=== PATIENT | female | born 1985 | race African-American/Black ===

== ENCOUNTER 2017-08-19 01:24 | Emergency (ER) | payer MEDICAID ==
[~2017-08-19] VITALS: Ht 165.1 cm; Wt 56.7 kg
--- NOTE | 2017-08-19 01:37 | NUR ---
PT TO ER BED 7. BIBRA FROM STREET C/O "BODY PAIN SINCE MIDNIGHT". PT PLACED ON BOX OFFICE CLERK. VSS/RESP EVEN UNLABORED/NAD NOTED/SKIN WARM AND DRY/AFEBRILE/DENIES N-V-D/AOX4. AWAITING MD CHRISTOPHER.
--- NOTE | 2017-08-19 02:20 | NUR ---
LAB AT BEDSIDE TO DRAW.
--- NOTE | 2017-08-19 02:20 | NUR ---
PT REFUSING TO GIVE A URINE, ALOS REFUSES F/C. MADE AWARE, NO NEW ORDERS RECEIVED AT THIS TIME.
[2017-08-19 02:34] LABS: BASOPHILS % (AUTO) 0.4 % (0.0-2.0); HEMATOCRIT 38 % (33-45); HEMOGLOBIN 12.4 g/dL (11.5-14.8); LYMPHOCYTES # (AUTO) 2.3 /CMM (0.8-4.8); LYMPHOCYTES % (AUTO) 29.5 % (20.0-44.0); MEAN CORPUSCULAR HEMOGLOBIN 26 PG (26.0-33.0); MEAN CORPUSCULAR HGB CONC 32 g/dl (31.0-36.0); MEAN CORPUSCULAR VOLUME 81 fL (82-100); MONOCYTES # (AUTO) 0.5 /CMM (0.1-1.30); MONOCYTES % (AUTO) 5.9 % (2.0-12.0); NEUTROPHILS # (AUTO) 4.9 /CMM (1.8-8.9); NEUTROPHILS % (AUTO) 64.2 % (43.0-81.0); PLATELET COUNT (AUTO) 191 /CMM (150-450); RDW COEFFICIENT OF VARIATION 14.6 (11.5-15.0); RED BLOOD CELL COUNT(AUTO) 4.72 MIL/uL (4.0-5.2); WHITE BLOOD COUNT (AUTO) 7.7 K/uL (4.3-11.0)
[2017-08-19 02:48] LABS: ALANINE AMINOTRANSFERASE 30 U/L (12-78); ALBUMIN 3.9 g/dL (3.4-5.0); ALCOHOL, BLOOD < 3 mg/dL (0-0); ALKALINE PHOSPHATASE 147 U/L (46-116); ASPARTATE AMINOTRANSFERASE 13 U/L (15-37); BILIRUBIN,DIRECT 0.1 mg/dL (0.0-0.2); BILIRUBIN,TOTAL 0.5 mg/dL (0.2-1.0); CALCIUM, SERUM 9.4 mg/dL (8.5-10.1); CARBON DIOXIDE 22 mmol/L (21-32); CHLORIDE 95 mmol/L (98-107); CREATININE 0.8 mg/dL (0.6-1.3); POTASSIUM 4.3 mmol/L (3.5-5.1); SODIUM SERUM 132 mmol/L (136-145); TOTAL PROTEIN, SERUM 7.6 g/dL (6.4-8.2); UREA NITROGEN, BLOOD 12 mg/dL (7-18)
[2017-08-19 02:52] LABS: ACETAMINOPHEN 0 ug/ml (10-30); GLUCOSE 544 mg/dL (74-106); THYROID STIMULATING HORMONE 1.678 uIU/mL (0.358-3.74)
[2017-08-19] MEDS ORDERED: INSULIN REGULAR, HUMAN 100 UNIT/ML 10 ML VIAL IV ONE (03:00)
[2017-08-19] MEDS ORDERED: IV NS 0.9% 1,000 ML BAG IV ONE (03:00)
[2017-08-19] MEDS ORDERED: POTASSIUM CHLORIDE 10 MEQ/50 ML PREMIXED IVPB FOR PERIPHERAL LINE IV ONE (03:00)
[2017-08-19] MEDS ORDERED: POTASSIUM CL. PREMIX PERIPHER. 100 ML ONE (03:07)
[2017-08-19] MEDS ORDERED: INSULIN REGULAR, HUMAN 100 UNIT/ML 10 ML VIAL ONE (03:07)
--- NOTE | 2017-08-19 03:15 | NUR ---
20G IV TO L HAND X 1 ATTEMPT USING ASEPTIC TECH. IV FLUSHES EASILY WITH NS, NO S/S INFILTRATION NOTED AT THIS TIME.
--- NOTE | 2017-08-19 04:33 | NUR ---
URINE SPECIMEN OBTAINED AND SENT TO THE LAB.
[2017-08-19 04:44] LABS: APPEARANCE,URINE CLEAR (CLEAR); BILIRUBIN,URINE NEGATIVE (NEGATIVE); BLOOD, URINE NEGATIVE Ery/uL (NEGATIVE); KETONES,URINE 3+ (NEGATIVE); LEUKOCYTE ESTERASE ,URINE NEGATIVE (NEGATIVE); NITRITE, URINE NEGATIVE (NEGATIVE); PH,URINE 5.5 (5.0-8.0); PROTEIN,URINE NEGATIVE (NEGATIVE); UGLUCOSE 3+ mg/dL (NEGATIVE); UROBILINOGEN,URINE 0.2 EU/dL (0.2)
[2017-08-19 05:08] LABS: BACTERIA,URINE None seen /HPF (None Seen); RBC,URINE NONE SEEN /HPF (0-2); SQUAMOUS EPITHELIAL CELL,UR Few /HPF (None Seen); WBC,URINE 0-2 /HPF (0-3)
[2017-08-19 05:09] LABS: COLOR,URINE Light yellow (YELLOW)
--- NOTE | 2017-08-19 06:54 | NUR ---
IV removed. Catheter intact and site benign. Pressure and 4x4 applied to site. No bleeding noted.
--- NOTE | 2017-08-19 07:06 | NUR ---
PT AWAKE AND ALERT. AWAITNG PEDIATRICS PHYSICIAN FOR PSYC EVAL. VSS. RN TO CONTINUE MONITORING PROVIDING SAFETY/COMFORT MEASURES.
--- NOTE | 2017-08-19 07:14 | NUR ---
ENDORSED TO NEELIMA GREEN FOR CAROL.
--- NOTE | 2017-08-19 08:26 | NUR ---
PY EASILY AROUSED SLEEPY CONT TO MOITOR
--- NOTE | 2017-08-19 10:16 | NUR ---
PT SPOKE WITH CLEMENT ENG PT. VERBALIZED UNDERSTANDING OF AFTERCARE INSTRUCTIONS.Patient discharged to home in stable condition. Written and verbal after care instructions given. Patient verbalizes understanding of instruction.
[2017-08-19 10:17] VITALS: BP 126/68
== END 2017-08-19 10:19 | disposition home or self-care (01) ==
LOC: ER 01:26
DX: E11.65 Type 2 diabetes mellitus with hyperglycemia (principal); R52 Pain, unspecified; F32.9 Major depressive disorder, single episode, unspecified; E86.0 Dehydration; Z59.0 Homelessness
CPT/HCPCS: 36415; 80048; 80076; 80305; 80329; 81001; 82962; 84443; 84703; 85025; 96361; 96374; 99285; A4606; G0480 ×2; J1815; J3480; J7030; Z7610; 81000-TC

== ENCOUNTER 2017-10-02 04:14 | Emergency (ER) | payer MEDICAID ==
[~2017-10-02] VITALS: Ht 172.7 cm; Wt 59.0 kg
[2017-10-02 04:23] VITALS: BP 124/55
--- NOTE | 2017-10-02 04:25 | NUR ---
PATIENT BIBRA. PATIENT WITH C/O 10/10 PAIN ALL OVER BODY, BURNING AND SHARP IN NATURE, DENIES TAKING ANY MEDICATION FOR PAIN.
--- NOTE | 2017-10-02 04:30 | NUR ---
PATIENT REFUSING LABS TO BE DRAWN, REFUSING IV INSERTION. MADE AWARE
[2017-10-02] MEDS ORDERED: INSULIN REGULAR, HUMAN 100 UNIT/ML 10 ML VIAL ONE (04:50)
[2017-10-02 04:59] LABS: BASOPHILS % (AUTO) 0.7 % (0.0-2.0); EOSINOPHILS % (AUTO) 0.3 % (0.0-6.0); HEMATOCRIT 38 % (33-45); HEMOGLOBIN 11.8 g/dL (11.5-14.8); LYMPHOCYTES # (AUTO) 1.2 /CMM (0.8-4.8); LYMPHOCYTES % (AUTO) 25.6 % (20.0-44.0); MEAN CORPUSCULAR HEMOGLOBIN 26 PG (26.0-33.0); MEAN CORPUSCULAR HGB CONC 31 g/dl (31.0-36.0); MEAN CORPUSCULAR VOLUME 82 fL (82-100); MONOCYTES # (AUTO) 0.3 /CMM (0.1-1.30); NEUTROPHILS # (AUTO) 3.1 /CMM (1.8-8.9); NEUTROPHILS % (AUTO) 67.4 % (43.0-81.0); PLATELET COUNT (AUTO) 258 /CMM (150-450); RED BLOOD CELL COUNT(AUTO) 4.59 MIL/uL (4.0-5.2); WHITE BLOOD COUNT (AUTO) 4.6 K/uL (4.3-11.0)
[2017-10-02] MEDS ORDERED: INSULIN REGULAR, HUMAN 100 UNIT/ML 10 ML VIAL SQ ONE (05:00)
--- NOTE | 2017-10-02 05:15 | NUR ---
BLOOD SUGAR READING "HI". MD AWARE. PERIPHERAL STICK BLOOD GLUCOSE >600. PATIENT MEDICATED ORDERED
[2017-10-02 05:16] LABS: ALBUMIN 3.7 g/dL (3.4-5.0); BILIRUBIN,TOTAL 0.4 mg/dL (0.2-1.0); CALCIUM, SERUM 9.1 mg/dL (8.5-10.1); CREATININE 0.9 mg/dL (0.6-1.3); POTASSIUM 4.1 mmol/L (3.5-5.1); TOTAL PROTEIN, SERUM 7.4 g/dL (6.4-8.2)
== END 2017-10-02 05:55 | disposition home or self-care (01) ==
LOC: ER 04:15
DX: E11.9 Type 2 diabetes mellitus without complications (principal); M79.1 Myalgia; F20.9 Schizophrenia, unspecified
CPT/HCPCS: 36415; 80053; 82962 ×2; 85025; 96372; 99284; A4606; J1815; Z7610